=== PATIENT | male | born 1985 | race Caucasian/White ===

== ENCOUNTER 2017-10-11 13:17 | Emergency (ER) | payer BC ==
--- NOTE | 2017-10-11 14:07 | UC ---
Dental HPI - HPI Summary HPI Summary: left upper wisdom tooth and left lower first molar both cracked and painful-- has been worsening over the past 2 days - History of Current Complaint Chief Complaint: UCDentalProblem Stated Complaint: DENTAL COMPLAINT Time Seen by Provider: 10/11/17 13:34 Hx Obtained From: Patient Onset/Duration: Sudden Onset, Lasting Days - 2, Still Present Severity: Moderate Aggravating Factor(s): Nothing Alleviating Factor(s): Nothing Related History: Previous Dental Care on Same Tooth - Allergies/Home Medications Allergies/Adverse Reactions: Allergies Allergy/AdvReac Type Severity Reaction Status Date / Time Penicillins [PCN] Allergy Hives Verified 10/11/17 13:45 Home Medications: Home Medications Ibuprofen TAB* [Advil TAB*] 200 mg PO ONCE 10/11/17 [History Confirmed 10/11/17] PMH/Surg Hx/FS Hx/Imm Hx Previously Healthy: Yes - Surgical History Surgical History: None - Family History Known Family History: Positive: None - Social History Occupation: Employed Full-time Lives: With Family Alcohol Use: None Substance Use Type: None Smoking Status (MU): Heavy Every Day Tobacco Smoker Review of Systems Constitutional: Negative Skin: Negative Eyes: Negative ENT: Dental Pain Respiratory: Negative Cardiovascular: Negative Gastrointestinal: Negative Genitourinary: Negative Motor: Negative Neurovascular: Negative Musculoskeletal: Negative Neurological: Negative Psychological: Negative Is Patient Immunocompromised?: No All Other Systems Reviewed And Are Negative: Yes Physical Exam Triage Information Reviewed: Yes Appearance: Well-Appearing, No Pain Distress, Well-Nourished Vital Signs: Initial Vital Signs Temp 98.0 F 10/11/17 13:43 Pulse 76 10/11/17 13:43 Resp 14 10/11/17 13:43 BP 147/81 10/11/17 13:43 Vital Signs Reviewed: Yes Eye Exam: Normal Eyes: Positive: Conjunctiva Clear ENT Exam: Normal ENT: Positive: Normal ENT inspection, Hearing grossly normal. Negative: Nasal drainage, Trismus, Muffled voice, Hoarse voice, Dental tenderness Dental Exam: Other Dental: Positive: Percussion Tenderness @, Gross Decay/Caries @, Abscess @ Neck exam: Normal Neck: Positive: Supple, Nontender, No Lymphadenopathy Respiratory Exam: Normal Respiratory: Positive: Chest non-tender, No respiratory distress, No accessory muscle use Cardiovascular Exam: Normal Cardiovascular: Positive: RRR, Pulses Normal, Brisk Capillary Refill Musculoskeletal Exam: Normal Musculoskeletal: Positive: Strength Intact, ROM Intact, No Edema Neurological Exam: Normal Neurological: Positive: Alert, Muscle Tone Normal Psychological Exam: Normal Skin Exam: Normal Dental Complaint Course/Dx - Course Course Of Treatment: percocet, clindamycin, referal to follow with dentist and follow blood pressure with reflector driller and deburrer - Differential Dx/Diagnosis Provider Diagnoses: leftupper wisom tooth and left lower first molar abscess, elevated blood pressure without diagnosis of hypertension Discharge - Discharge Plan Condition: Stable Disposition: HOME Prescriptions: Clindamycin Cap(NF) [Clindamycin Cap 300 mg Cap(NF)] 300 mg PO Q6H #40 cap oxyCODONE/Acetamin 5/325 MG* [Percocet 5/325 TAB*] 1 tab PO Q6H PRN #12 tab MDD 4 PRN Reason: Pain - Moderate To Severe Patient Education Materials: Dental Abscess (ED), Hypertension (ED), Toothache (ED) Referrals: Abundio Santizo MD [Primary Care Provider] - If Needed Additional Instructions: I have given you a dental sheet with local dentist to seek care
== END 2017-10-11 14:06 | disposition home or self-care (01) ==
LOC: UCCORT 13:17
DX: K04.7 Periapical abscess without sinus (principal); R03.0 Elevated blood-pressure reading, without diagnosis of hypertension; Z88.0 Allergy status to penicillin; F17.290 Nicotine dependence, other tobacco product, uncomplicated
CPT/HCPCS: 99202; G0463

== ENCOUNTER 2018-01-10 15:34 | Emergency (ER) | payer BC ==
[2018-01-10 15:54] VITALS: BP 136/78
--- NOTE | 2018-01-10 16:08 | UC ---
Dental HPI - HPI Summary HPI Summary: pt is c/o pain to 2 bad teeth. he notes they have been bad for a very long time and are recently painful. they feel "tight" like swelling. - History of Current Complaint Stated Complaint: DENTAL PAIN Time Seen by Provider: 01/10/18 15:41 Hx Obtained From: Patient Onset/Duration: Gradual Onset Pain Intensity: 8 Aggravating Factor(s): Chewing Alleviating Factor(s): Nothing - Allergies/Home Medications Allergies/Adverse Reactions: Allergies Allergy/AdvReac Type Severity Reaction Status Date / Time Penicillins Allergy Unknown Hives Verified 01/10/18 15:42 Home Medications: Home Medications Acetaminophen TAB* [Tylenol TAB*] 650 mg PO Q4H PRN 01/10/18 [History Confirmed 01/10/18] PMH/Surg Hx/FS Hx/Imm Hx - Additional Past Medical History Additional PMH: diarrhea from clindamycin that was tx with flagyl - Surgical History Surgical History: Yes Surgery Procedure, Year, and Place: ORAL SURGERY - Family History Known Family History: Positive: None - Social History Occupation: Employed Full-time Lives: With Family Alcohol Use: None Substance Use Type: None Smoking Status (MU): Light Every Day Tobacco Smoker Type: Cigarettes Amount Used/How Often: 1/2 PPD Household Exposure Type: Cigarettes - Immunization History Vaccination Up to Date: Yes Review of Systems Constitutional: Negative Skin: Negative Eyes: Negative ENT: Negative Respiratory: Negative Cardiovascular: Negative Gastrointestinal: Negative Genitourinary: Negative Motor: Negative Neurovascular: Negative Musculoskeletal: Negative Neurological: Negative Psychological: Negative Is Patient Immunocompromised?: No All Other Systems Reviewed And Are Negative: Yes Physical Exam Triage Information Reviewed: Yes Appearance: Well-Appearing Vital Signs: Initial Vital Signs Temp 98.9 F 01/10/18 15:44 Pulse 78 01/10/18 15:44 Resp 18 01/10/18 15:44 BP 136/78 01/10/18 15:44 Pulse Ox 100 01/10/18 15:44 Vital Signs Reviewed: Yes Eyes: Positive: Conjunctiva Clear ENT: Positive: Pharynx normal, TMs normal. Negative: Nasal congestion, Nasal drainage Dental: Positive: Percussion Tenderness @ - L upper and lower posterior molars, Gross Decay/Caries @ - L upper and lower posterior molars Neck: Positive: Supple, Nontender, No Lymphadenopathy Respiratory: Positive: Lungs clear, Normal breath sounds Cardiovascular: Positive: RRR, No Murmur Abdomen Description: Positive: Nontender, No Organomegaly, Soft Bowel Sounds: Positive: Present Musculoskeletal: Positive: ROM Intact Neurological: Positive: Alert Psychological: Positive: Age Appropriate Behavior Skin Exam: Normal Dental Complaint Course/Dx - Course Course Of Treatment: exam c/w dental decay and secondary infection given subjective swelling. he is pcn allergic. he had diarrhea from clindamycin that was tx with flagyl thus probable c-diff so will tx with flagyl and nsaid with dental referal. - Differential Dx/Diagnosis Provider Diagnoses: Dental pain with decay L upper and lower posterior molars. Dental infections Discharge - Sign-Out/Discharge Documenting (check all that apply): Discharge - Discharge Plan Condition: Stable Disposition: HOME Prescriptions: metroNIDAZOLE [Flagyl 500 MG TAB] 500 mg PO TID 30 Days #1 tab Naproxen [Naprosyn] 500 mg PO BID #14 tablet Patient Education Materials: Toothache (ED) Referrals: Abundio Santizo MD [Primary Care Provider] - If Needed Jerardo Collins DMD [Doctor of Dental Medicine] - As Soon As Possible Additional Instructions: CALL ORAL SURGEON OR A DENTIST FROM THE LIST PROVIDED FOR THE NEXT AVAILABLE APPOINTMENT. - Billing Disposition and Condition Condition: STABLE Disposition: HOME
== END 2018-01-10 16:21 | disposition home or self-care (01) ==
LOC: UCCORT 15:34
DX: K02.9 Dental caries, unspecified (principal); K04.7 Periapical abscess without sinus; F17.210 Nicotine dependence, cigarettes, uncomplicated; Z88.0 Allergy status to penicillin
CPT/HCPCS: 99211; G0463